=== PATIENT | male | born 1980 | race Two or more races ===

== ENCOUNTER 2023-09-20 06:25 | Inpatient (IN) | payer OTHER ==
[~2023-09-20] VITALS: Ht 182.9 cm; Wt 131.4 kg
[2023-09-20 06:30] VITALS: PULSE 92; RESP 30; RESP 31; O2SAT 100
[2023-09-20 06:55] LABS: EOSINOPHILS % (AUTO) 2.7 % (1.0-6.0); HEMATOCRIT 54.6 % (41-53); HEMOGLOBIN 17.1 g/dL (13.5-17.5); LYMPHOCYTES # (AUTO) 6.6 K/uL (1.0-4.8); MEAN CORPUSCULAR HEMOGLOBIN 27.8 pg (26.0-34.0); MEAN CORPUSCULAR HGB CONC 31.3 G/dL (31.0-37.0); MEAN CORPUSCULAR VOLUME 89 fL (80-100); MONOCYTES # (AUTO) 0.7 K/uL (0.1-1.0); MONOCYTES % (AUTO) 5.4 % (2.0-9.0); NEUTROPHILS # (AUTO) 5.9 K/uL (1.8-7.7); NEUTROPHILS % (AUTO) 42.9 % (40.0-70.0); PLATELET COUNT (AUTO) 288 K/uL (150-450); RED BLOOD CELL COUNT(AUTO) 6.16 MIL/uL (4.50-5.90); RED CELL DISTRIBUTION WIDTH 16.5 % (11.5-14.5); WHITE BLOOD COUNT (AUTO) 13.8 K/uL (4.5-11.0)
[2023-09-20] MEDS: ONDANSETRON HCL 4 MG/2 ML VIAL IVP ONE (07:02)
[2023-09-20] MEDS: FUROSEMIDE 40 MG/4 ML VIAL IVP ONE ×2 (07:02→09:19)
[2023-09-20] MEDS ORDERED: IOHEXOL 350 MG/ML 100 ML VIAL ONE (07:04)
[2023-09-20] MEDS ORDERED: SODIUM CHLORIDE 0.9% 100 ML ONE (07:04)
[2023-09-20 07:05] LABS: ANION GAP 15 mmol/L (8-16); CALCIUM, TOTAL 9.1 mg/dL (8.8-10.5); CARBON DIOXIDE 24 mmol/L (22-29); CHLORIDE 105 mmol/L (98-107); CREATININE 2.22 mg/dL (0.60-1.30); GLOMERULAR FILTR. RATE CALC 32 mL/min (>60); GLUCOSE,RANDOM 240 mg/dL (70-110); SODIUM SERUM 144 mmol/L (136-145); UREA NITROGEN, BLOOD 29 mg/dL (7-18)
[2023-09-20 07:07] LABS: INR 3.2 (0.9-1.1); PROTHROMBIN TIME 31.1 SEC (9.4-11.6)
[2023-09-20 07:09] LABS: ALCOHOL, BLOOD (SERUM) < 3 mg/dL (0-10)
[2023-09-20 07:12] LABS: B-TYPE NATRIURETIC PEPTIDE 396 pg/mL (0-100)
[2023-09-20 07:13] LABS: TROPONIN I-HIGH SENSITIVITY 32 ng/L (<76)
[2023-09-20 07:24] LABS: COVID AG,FIA SOURCE NASAL SWAB
[2023-09-20 07:31] LABS: ALANINE AMINOTRANSFERASE 89 U/L (12-78); ALBUMIN 3.6 g/dL (3.4-5.0); ALKALINE PHOSPHATASE 86 U/L (46-116); ASPARTATE AMINOTRANSFERASE 66 U/L (15-37); CREATINE KINASE, TOTAL ONLY 490 U/L (39-308); PHOSPHORUS 7.5 mg/dL (2.5-4.9); TOTAL PROTEIN, SERUM 7.9 g/dL (6.4-8.2)
[2023-09-20] MEDS ORDERED: FURO20 PO (07:35)
[2023-09-20] MEDS ORDERED: METF-1211 PO (07:35)
[2023-09-20] MEDS ORDERED: WARF1TAB9 PO (07:35)
[2023-09-20] MEDS ORDERED: METO-325 PO (07:35)
[2023-09-20] MEDS ORDERED: EMPA25TA3 PO (07:35)
[2023-09-20] MEDS ORDERED: AMIO200T68 PO (07:35)
[2023-09-20] MEDS ORDERED: ATOR40TA28 PO (07:35)
[2023-09-20] MEDS ORDERED: GLIP5TAB16 PO (07:35)
[2023-09-20] MEDS ORDERED: LOSA-382 PO (07:35)
[2023-09-20 07:41] LABS: SARS-COV2 (COVID) ANTIGEN,FIA Negative (Negative)
[2023-09-20 07:43] LABS: INFLUENZA TYPE A NEGATIVE FOR TYPE A (NEGATIVE); INFLUENZA TYPE B NEGATIVE FOR TYPE B (NEGATIVE)
[2023-09-20 08:56] LABS: APPEARANCE,URINE CLEAR (CLEAR); BILIRUBIN,URINE NEGATIVE (NEGATIVE); COLOR,URINE COLORLESS (YELLOW); GLUCOSE, URINE (UA) >=1000 mg/dL (NEGATIVE); KETONES,URINE NEGATIVE (NEGATIVE); LEUKOCYTE ESTERASE ,URINE NEGATIVE (NEGATIVE); NITRATE,URINE NEGATIVE (NEGATIVE); OCCULT BLOOD,URINE NEGATIVE (NEGATIVE); PROTEIN,URINE 30-70 mg/dL (NEGATIVE); SPECIFIC GRAVITIY, URINE 1.005 (1.003-1.030); UROBILINOGEN,URINE <=1.0 mg/dL (<=1.0)
[2023-09-20 09:03] LABS: ALCOHOL, URINE DRUG SCREEN NEGATIVE (NEGATIVE); AMPHET/METH SCREEN,URINE NEGATIVE (NEGATIVE); BARBITURATE SCREEN, URINE NEGATIVE (NEGATIVE); BENZODIAZEPINES SCREEN,URINE NEGATIVE (NEGATIVE); CANNABINOID SCREEN,URINE NEGATIVE (NEGATIVE); COCAINE SCREEN,URINE NEGATIVE (NEGATIVE); METHADONE SCREEN, URINE NEGATIVE (NEGATIVE); OPIATE SCREEN,URINE NEGATIVE (NEGATIVE); PHENCYCLIDINE SCREEN,URINE NEGATIVE (NEGATIVE)
[2023-09-20 09:05] LABS: BACTERIA,URINE None Seen /HPF (None Seen); HYALINE CASTS, URINE 0-2 /LPF (None Seen); RBC,URINE 0-2 /HPF (0-2); WBC,URINE None Seen /HPF (0-5)
[2023-09-20 09:22] LABS: ABG BASE EXCESS -5.8 mmol/L (-2.0-3.0); ABG CARBOXYHEMOGLOBIN 0.2 % (0.0-1.5); ABG HCO3 20.2 mmol/L (22.0-26.0); ABG METHEMOGLOBIN 0.8 % (0.0-1.5); ABG OXYGEN CONTENT 26.2 mL/dL (15.0-23.0); ABG OXYGEN SATURATION 99.7 % (95.0-98.0); ABG OXYHEMOGLOBIN 98.7 % (94.0-100.0); ABG PCO2 40 mmHg (35-45); ABG PH 7.326 (7.35-7.450); ABG TOTAL HEMOGLOBIN 18.1 G/dL (12.0-18.0); PO2, ARTERIAL BG 446.3 mmHg (88.0-96.0); SOURCE, BLOOD GAS ARTERIAL; TEMPERATURE, FAHRENHEIT, BG 97.7 FAHREN (96.0-98.6)
[2023-09-20 09:24] LABS: ALLEN TEST, BLOOD GAS POS; SITE, BLOOD GAS LFT BRACHIAL
[2023-09-20 09:25] LABS: O2 DEVICE,BLOOD GAS BIPAP (ROOM AIR)
[2023-09-20 09:31] VITALS: PULSE 94; RESP 24; O2SAT 100
[2023-09-20] MEDS ORDERED: ASPI-1444 PO (11:44)
[2023-09-20] MEDS ORDERED: METF-81 PO (11:44)
[2023-09-20] MEDS ORDERED: GLIP-102 PO (11:44)
[2023-09-20 12:00] VITALS: BP 110/77; PULSE 71; PULSE 75; RESP 24; TEMP 98.1
[2023-09-20] MEDS ORDERED: ONDANSETRON HCL 4 MG/2 ML VIAL IVP PRN (13:30)
[2023-09-20] MEDS ORDERED: BISACODYL 10 MG RECTAL RECTAL SUPPOSITORY PR PRN (13:30)
[2023-09-20] MEDS ORDERED: DEXTROSE 50%-WATER 25 GM/50 ML SYRINGE IVP PRN (13:30)
[2023-09-20] MEDS ORDERED: MAGNESIUM HYDROXIDE SUSPENSION 30 ML UDCUP PO PRN (13:30)
[2023-09-20] MEDS ORDERED: MORPHINE SULFATE 2 MG/ML SYRINGE IVP PRN (13:30)
[2023-09-20] MEDS ORDERED: HYDROCODONE/ACETAMINOPHEN 5-325 MG TABLET PO PRN (13:30)
[2023-09-20] MEDS ORDERED: ACETAMINOPHEN 325 MG TABLET PO PRN (13:30)
[2023-09-20] MEDS ORDERED: ZOLPIDEM TARTRATE 5 MG TABLET PO PRN (13:30)
[2023-09-20] MEDS: INSULIN LISPRO 100 UNITS/ML SQ PRN (13:36)
[2023-09-20] MEDS: *CLINICAL-WARFARIN SODIUM DOSING CLINICAL ONE (13:38)
[2023-09-20 16:00] VITALS: BP 124/88; PULSE 70; RESP 16; TEMP 98.3
[2023-09-20] MEDS: GlipiZIDE ER 2.5 MG ER TABLET PO SCH (17:00)
[2023-09-20 17:46] LABS: GLUCOMETER DEV NAME(LOC) ICU.S6; GLUCOSE,POINT OF CARE 168 MG/DL (70-110)
[2023-09-20 17:46] LABS: GLUCOMETER DEV NAME(LOC) ICU.S6; GLUCOSE,POINT OF CARE 170 MG/DL (70-110)
[2023-09-20 17:46] LABS: GLUCOMETER DEV NAME(LOC) ICU.S6; GLUCOSE,POINT OF CARE 123 MG/DL (70-110)
[2023-09-20] MEDS: DOCUSATE SODIUM 100 MG CAPSULE PO SCH (19:58)
[2023-09-20] MEDS: METOPROLOL SUCCINATE 50 MG ER TABLET PO SCH (19:58)
[2023-09-20 20:00] VITALS: BP 115/83; PULSE 69; RESP 16; TEMP 98.3
[2023-09-20 21:25] LABS: GLUCOMETER DEV NAME(LOC) ICU.S6; GLUCOSE,POINT OF CARE 60 MG/DL (70-110)
[2023-09-20 21:26] LABS: GLUCOMETER DEV NAME(LOC) ICU.S6; GLUCOSE,POINT OF CARE 123 MG/DL (70-110)
[2023-09-21] VITALS (7 sets, daily range): BP systolic 104–128; BP diastolic 63–95; PULSE 58–72; RESP 14–19; TEMP 97.8–98.4
[2023-09-21 06:05] LABS: CALCIUM, TOTAL 8.9 mg/dL (8.8-10.5); CREATININE 1.74 mg/dL (0.60-1.30); POTASSIUM 3.5 mmol/L (3.5-5.1)
[2023-09-21 06:33] LABS: TROPONIN I-HIGH SENSITIVITY 139 ng/L (<76)
[2023-09-21 07:22] LABS: BASOPHILS % (AUTO) 0.5 % (0.0-2.0); HEMATOCRIT 47.7 % (41-53); HEMOGLOBIN 15.5 g/dL (13.5-17.5); LYMPHOCYTES # (AUTO) 1.5 K/uL (1.0-4.8); LYMPHOCYTES % (AUTO) 18.8 % (22.0-44.0); MEAN CORPUSCULAR HEMOGLOBIN 27.9 pg (26.0-34.0); MEAN CORPUSCULAR HGB CONC 32.4 G/dL (31.0-37.0); MEAN CORPUSCULAR VOLUME 86 fL (80-100); MONOCYTES # (AUTO) 0.6 K/uL (0.1-1.0); MONOCYTES % (AUTO) 7.4 % (2.0-9.0); NEUTROPHILS # (AUTO) 5.6 K/uL (1.8-7.7); NEUTROPHILS % (AUTO) 72.3 % (40.0-70.0); RED BLOOD CELL COUNT(AUTO) 5.53 MIL/uL (4.50-5.90); RED CELL DISTRIBUTION WIDTH 16.5 % (11.5-14.5)
[2023-09-21 07:27] LABS: PLATELET COUNT (AUTO) 238 K/uL (150-450); WHITE BLOOD COUNT (AUTO) 10.8 K/uL (4.5-11.0)
[2023-09-21 07:55] LABS: INR 2.2 (0.9-1.1); PROTHROMBIN TIME 22.4 SEC (9.4-11.6)
[2023-09-21] MEDS: ASPIRIN 81 MG DR TABLET PO SCH (08:32)
[2023-09-21] MEDS: ATORVASTATIN CALCIUM 40 MG TABLET PO SCH (08:32)
[2023-09-21] MEDS: AMIODARONE HCL 200 MG TABLET PO SCH (08:32)
[2023-09-21] MEDS: EMPAGLIFLOZIN 25 MG TABLET PO SCH (08:32)
[2023-09-21] MEDS: LOSARTAN POTASSIUM 50 MG TABLET PO SCH (08:32)
[2023-09-21] MEDS: PANTOPRAZOLE SODIUM 40 MG DR TABLET PO SCH (08:32)
[2023-09-21 11:26] LABS: GLUCOMETER DEV NAME(LOC) 5S.1B; GLUCOSE,POINT OF CARE 96 MG/DL (70-110)
[2023-09-21 13:01] LABS: GLUCOMETER DEV NAME(LOC) 5S.2D; GLUCOSE,POINT OF CARE 112 MG/DL (70-110)
[2023-09-21] MEDS: WARFARIN SODIUM 1 MG TABLET PO SCH (17:06)
[2023-09-21 21:30] LABS: GLUCOMETER DEV NAME(LOC) 5S.1B; GLUCOSE,POINT OF CARE 154 MG/DL (70-110)
[2023-09-21 21:30] LABS: GLUCOMETER DEV NAME(LOC) 5S.1B; GLUCOSE,POINT OF CARE 84 MG/DL (70-110)
[2023-09-22 00:31] VITALS: BP 114/67; PULSE 61; RESP 18; TEMP 98.2
[2023-09-22 05:18] VITALS: BP 105/76; PULSE 60; RESP 18; TEMP 97.7
[2023-09-22 06:21] LABS: BASOPHILS % (AUTO) 0.7 % (0.0-2.0); EOSINOPHILS % (AUTO) 2.5 % (1.0-6.0); HEMATOCRIT 46.8 % (41-53); HEMOGLOBIN 15.2 g/dL (13.5-17.5); LYMPHOCYTES % (AUTO) 26.4 % (22.0-44.0); MEAN CORPUSCULAR HEMOGLOBIN 27.9 pg (26.0-34.0); MEAN CORPUSCULAR HGB CONC 32.4 G/dL (31.0-37.0); MEAN CORPUSCULAR VOLUME 86 fL (80-100); MONOCYTES # (AUTO) 0.5 K/uL (0.1-1.0); MONOCYTES % (AUTO) 7.1 % (2.0-9.0); NEUTROPHILS # (AUTO) 4.7 K/uL (1.8-7.7); NEUTROPHILS % (AUTO) 63.3 % (40.0-70.0); PLATELET COUNT (AUTO) 202 K/uL (150-450); RED BLOOD CELL COUNT(AUTO) 5.43 MIL/uL (4.50-5.90); WHITE BLOOD COUNT (AUTO) 7.4 K/uL (4.5-11.0)
[2023-09-22 06:22] LABS: INR 1.9 (0.9-1.1)
[2023-09-22 06:34] LABS: CALCIUM, TOTAL 8.6 mg/dL (8.8-10.5); CREATININE 1.5 mg/dL (0.60-1.30); POTASSIUM 3.6 mmol/L (3.5-5.1)
[2023-09-22 07:13] VITALS: BP 111/71; PULSE 65; TEMP 98
[2023-09-22 08:13] LABS: TROPONIN I-HIGH SENSITIVITY 69 ng/L (<76)
[2023-09-22 11:26] VITALS: BP 111/70; PULSE 60; RESP 18; TEMP 98.1
[2023-09-22] MEDS ORDERED: WARF1TAB9 PO (12:23)
[2023-09-23 06:31] LABS: GLUCOMETER DEV NAME(LOC) 5S.1B; GLUCOSE,POINT OF CARE 111 MG/DL (70-110)
[2023-09-23 06:31] LABS: GLUCOMETER DEV NAME(LOC) 5S.1B; GLUCOSE,POINT OF CARE 84 MG/DL (70-110)
== END 2023-09-22 13:25 | disposition home or self-care (01) | DRG 291 ==
LOC: EMS 06:27 → EDH 08:14 → ICU 11:02 → 5S 09-21 03:35
PROVIDERS: ADMIT Internal Medicine; ATTEND Internal Medicine
PROC: 5A09357 Assistance with Respiratory Ventilation, Less than 24 Consecutive Hours, Continuous Positive Airway Pressure (ICD-10-PCS; principal; 2023-09-20)
DX: I13.0 Hypertensive heart and chronic kidney disease with heart failure and stage 1 through stage 4 chronic kidney disease, or unspecified chronic kidney disease (principal); I50.23 Acute on chronic systolic (congestive) heart failure; J96.01 Acute respiratory failure with hypoxia; N17.9 Acute kidney failure, unspecified; N18.4 Chronic kidney disease, stage 4 (severe); E66.01 Morbid (severe) obesity due to excess calories; I48.0 Paroxysmal atrial fibrillation; E78.5 Hyperlipidemia, unspecified; Z20.822 Contact with and (suspected) exposure to COVID-19; E11.22 Type 2 diabetes mellitus with diabetic chronic kidney disease; I25.10 Atherosclerotic heart disease of native coronary artery without angina pectoris; Z79.01 Long term (current) use of anticoagulants; Z95.1 Presence of aortocoronary bypass graft; Z79.82 Long term (current) use of aspirin; Z79.84 Long term (current) use of oral hypoglycemic drugs; Z79.899 Other long term (current) drug therapy; Z68.39 Body mass index [BMI] 39.0-39.9, adult
CPT/HCPCS: 36600; 71045; 80048; 80053; 80307; 81001; 82550; 82805; 82962; 83735; 83880; 84100; 84484; 85025; 85610; 85730; 87081; 87481; 87804; 93005; 93306; 94660; 96374; 96375; 96376; 99291; G0480; J1940; J2405; J7050; 36415-L1; 36415-TC